=== PATIENT | female | born 1965 | race Caucasian/White ===

== ENCOUNTER 2016-09-03 08:52 | Inpatient (IN) | payer OTHER ==
[~2016-09-03] VITALS: Ht 167.6 cm; Wt 83.0 kg
[~2016-09-03 08:52] MED LIST: ALBU1AER9 INH; ALPR-411 PO; ATOR-22 PO; CZR50 PO; LEVO75TA5 PO; PRLSR20 PO
[2016-09-03 09:19] LABS: BASO % 0.3 %; BASO ABS # 0.02 K/uL (0-0.2); COMPLETE YES; EOS % 2.9 %; HEMATOCRIT 49.2 % (37-47); IG% 0.2 %; LYMPH % 24.8 %; MEAN CELL VOLUME 95.7 fL (80-100); MEAN CORPUSCULAR HEMOGLOBIN 32.7 pg (25-34); MEAN CORPUSCULAR HGB CONC 34.1 g/dl (32-36); MEAN PLATELET VOLUME 10.5 fL (7.4-10.4); MONO % 7.1 %; NEUT % 64.7 %; PLATELET COUNT 141 K/uL (130-400); RED BLOOD COUNT 5.14 M/uL (4.2-5.4); WHITE BLOOD COUNT 6.45 K/uL (4.8-10.8)
[2016-09-03 09:26] LABS: BUN/CREATININE RATIO 15.6 (10-20); CREATININE 0.81 mg/dl (0.60-1.20); MAGNESIUM 1.8 mg/dl (1.8-2.4)
[2016-09-03 09:29] LABS: CALCIUM 8.7 mg/dl (8.5-10.1)
[2016-09-03 09:30] LABS: PROTHROMBIN TIME (PATIENT) 10.3 SECONDS (9.0-12.0)
[2016-09-03 09:37] LABS: CKMB/CK RATIO 2.1 (0-3.0); THYROID STIMULATING HORMONE 5.59 uIu/ml (0.300-4.500)
--- NOTE | 2016-09-03 09:52 | DIAGNOSTIC IMAGING REPORT ---
CHEST ONE VIEW PORTABLE HISTORY: dyspnea and pain in RUQ COMPARISON: Chest 01/30/2016. FINDINGS: No pneumothorax. No pleural effusions. Left basilar linear densities favor subsegmental atelectasis or scarring. The heart is mildly enlarged, unchanged. Mild emphysema. Bibasilar interstitial thickening is likely due to vascular crowding. This is also unchanged. No new focal lung consolidations. IMPRESSION: No significant change compared to the prior study. No acute process. Stable mild cardiomegaly and emphysema. Electronically signed by: Santo Silverio M.D. 09/03/2016 9:51 AM Dictated Date/Time: 09/03/2016 9:49 AM
[2016-09-03] MEDS ORDERED: ALBUT/IPRATROP 3MG/0.5MG NEB 3 ML VIAL INH STA (09:58)
[2016-09-03] MEDS ORDERED: METHYLPREDNISOLONE 125 MG VIAL IV STA (09:58)
[2016-09-03] MEDS ORDERED: VNTHFA/IN INH (10:39)
--- NOTE | 2016-09-03 12:17 | DIAGNOSTIC IMAGING REPORT ---
BILATERAL LOWER EXTREMITY VENOUS DOPPLER HISTORY: Shortness of breath COMPARISON STUDY: None. FINDINGS: There is normal compressibility, flow, and augmentation within the bilateral lower extremity deep venous systems. IMPRESSION: No DVT within the right or left lower extremity. Electronically signed by: Santo Silverio M.D. 09/03/2016 12:16 PM Dictated Date/Time: 09/03/2016 12:16 PM
--- NOTE | 2016-09-03 12:20 | DIAGNOSTIC IMAGING REPORT ---
Right upper quadrant ultrasound GALLBLADDER-ABD LIMITED CLINICAL HISTORY: RUQ abdominal pain pain. Nausea. TECHNIQUE: Ultrasound COMPARISON STUDY: None FINDINGS: Gallbladder is normal. Common bile duct 5 mm. Fatty infiltration of liver. Pancreas and right kidney are unremarkable. IMPRESSION: Fatty infiltration of liver. Otherwise negative study. Electronically signed by: Reddy Girard M.D. 09/03/2016 12:19 PM Dictated Date/Time: 09/03/2016 12:17 PM
[2016-09-03 12:53] LABS: MANUAL MICROSCOPIC REQUIRED? NO; REVIEW REQ? NO; URINE APPEARANCE CLEAR (CLEAR); URINE BILIRUBIN NEG (NEG); URINE COLOR YELLOW; URINE NITRITE NEG (NEG); URINE PH 5.5 (4.5-7.5); URINE SPECIFIC GRAVITY 1.023 (1.000-1.030); UROBILINOGEN NEG (NEG); ZZUR CULT IF INDIC CLEAN CATCH NO
[2016-09-03 13:56] VITALS: O2SAT 90; Ht 167.6 cm; Wt 83.0 kg
[2016-09-03] MEDS ORDERED: ALUMINUM/MAGNESIUM/SIMETH (MAALOX MAX) 30 ML UDC PO PRN (15:15)
[2016-09-03] MEDS ORDERED: POLYETHYLENE (MIRALAX) 17 GM PACK PO PRN (15:15)
[2016-09-03] MEDS ORDERED: ZOLPIDEM TARTRATE 5 MG TAB PO PRN (15:15)
[2016-09-03] MEDS ORDERED: ALBUTEROL HFA 8 GM INHALER INH PRN (15:15)
[2016-09-03] MEDS ORDERED: MAGNESIUM HYDROXIDE SUSP 30 ML UDC PO PRN (15:15)
[2016-09-03] MEDS ORDERED: ACETAMINOPHEN 325 MG TAB PO PRN (15:15)
[2016-09-03] MEDS ORDERED: NICOTINE 21 MG/24 HR TDSY ONE (15:55)
[2016-09-03] MEDS: ALPRAZOLAM 0.5 MG TAB PO PRN (15:56)
--- NOTE | 2016-09-03 16:19 | HISTORY & PHYSICAL EXAMINATION ---
DATE OF ADMISSION: 09/03/2016 CHIEF COMPLAINT: Shortness of breath. HISTORY OF PRESENT ILLNESS: The patient is a 50-year-old female with past medical history of COPD secondary to chronic smoking, presented to the ED with 3 days' history of significant shortness of breath. The patient denies any cough more than usual. Denies any chest pain or palpitation. She is supposed to be on 2.5 liters of oxygen at night at bedtime at home, but she stated that she noticed that she is requiring her oxygen all the time. When she came to the ED, she was found to have an oxygen saturation of 77% on room air and her blood pressure was 200/100. Chest x-ray showed no significant change compared to old x-rays that we have illustrating her emphysema. The patient then changed her mind and wanted to leave against medical advice when I was called for the admission. Upon my arrival, I talked to her about having some more workup done. She agreed. REVIEW OF SYSTEMS: Denies any headache, double vision, blurry vision. Denies any chest pain or palpitation. Admits to regular chronic cough but nothing is changed. Denies any diarrhea, blood in stool. Denies any burning sensation in the urine or blood. Denies any focal weakness, tingling, numbness. Rest of the review of systems is negative. PAST MEDICAL HISTORY: Lyme disease, dyslipidemia, hypertension, COPD. FAMILY HISTORY: Denies any family history for diabetes or heart disease. SOCIAL HISTORY: She is currently smoker and drinks socially. She cut down on smoking 10 cigarettes a day. LABORATORY DATA: Sodium 143, potassium 4, BUN is 13, creatinine 0.8. LFTs are normal. TSH is 5.6. INR is 1. Urine is negative. White blood cell count 6.4, hemoglobin is 16.8 and platelet count is 141. PHYSICAL EXAMINATION: VITAL SIGNS: Pulse 69, respiration is 14, blood pressure 164/117, saturation 77 on room air. HEENT: No jaundice, no pallor with mucous membranes. NECK: Supple. HEART: S1, S2 normal. No gallop, rub or murmur. LUNGS: Clear to auscultation bilaterally. Normal chest wall expansion. ABDOMEN: Soft, nontender, nondistended. NEUROLOGIC: Awake, alert, oriented to time, place, and person. Moves all extremities. Sensation intact. Cranial nerves II through XII appear to be intact. HOME MEDICATIONS: Albuterol inhaler, Xanax p.r.n., Lipitor 20 mg daily, Synthroid 75 mcg p.o. daily, omeprazole 20 mg daily. ASSESSMENT: 1. Acute on chronic hypoxic respiratory failure secondary to below. 2. Chronic obstructive pulmonary disease exacerbation 3. Hypertensive urgency. 4. Dyslipidemia. 5. Clinically suspected obstructive sleep apnea. 6. Clinically suspected pulmonary hypertension. 7. Reactive polycythemia. PLAN: 1. Admit patient to telemetry. 2. Start the patient on steroids IV and Solu-Medrol 40 mg 6 hours. 3. Start patient on nebulizer, inhalers, bronchodilators. 4. Consult Dr. Oropeza because the patient will need pulmonology followup as an outpatient. 5. Consult social media marketing analyst for portable oxygen. 6. GI and DVT prophylaxis. 7. The patient was on losartan at home 50 mg daily, will increase it 50 plus 12.5 hydrochlorothiazide. 8. We will add amlodipine. 9. Continue her Lipitor. 10. Check hemoglobin A1c and lipids to stratify her risk. 11. Order 2-D echo to evaluate pulmonary hypertension and to rule out any AV shunt. The patient was instructed to decrease cigarette use and will be placed on a nicotine patch while in the hospital.
[2016-09-03 17:40] VITALS: BP 179/117; PULSE 75; TEMP 36.7; O2SAT 91
[2016-09-03] MEDS ORDERED: ENOXAPARIN 40 MG/0.4 ML SYR SC SCH (18:00)
[2016-09-03] MEDS: AMLODIPINE BESYLATE 5 MG TAB PO SCH (18:03)
[2016-09-03] MEDS: LOSARTAN/HCTZ 50-12.5 EA TAB PO SCH (18:03)
[2016-09-03] MEDS: METHYLPREDNISOLONE IV 40 MG in SYRINGE 0 ML IV SCH ×2 (18:04→21:30)
[2016-09-03 18:08] LABS: CHOLESTEROL/HDL RATIO 3.2
--- NOTE | 2016-09-03 18:36 | EMERGENCY ROOM VISIT NOTE ---
History First contact with patient: 08:56 Chief Complaint: SHORTNESS OF BREATH Stated Complaint: COPD EXACERBATION Nursing Triage Summary: "since last /saturday I've been short of breath" "I usually wear oxygen at night but I'm afraid I'm gonna in my sleep." hx of copd History of Present Illness The patient is a 50 year old female who presents to the Emergency Room via ambulance with complaints of "abdominal pain/shortness of breath". The patient states that she has a history of emphysema, and this past and Saturday she felt as though she could not breathe, and had an acute worsening of her chronic shortness of breath. She states that she has smoked a total of 6 cigarettes since Saturday. She notes this is markedly decreased as she usually smokes 10 cigarettes per day. There is associated lightheadedness. The patient states that she does wear 2.5 L of oxygen at night. She also states that she developed right upper quadrant pain that began yesterday . There is no other abdominal pain, fevers, chills, chest pain, leg swelling. Review of Systems A complete 10-point Review of Systems was discussed with the patient, with pertinent positives and negatives listed in the History of Present Illness. All remaining Review of Systems questions can be considered negative unless otherwise specified. Past Medical/Surgical History Medical Problems: (1) COPD exacerbation (2) Emphysema of lung (3) HYPERLIPIDEMIA NEC/NOS (4) HYPERTENSION NOS (5) Thyroid disease Surgical Problems: (1) H/O brain surgery (2) S/P ACL repair Family History No pertinent family history Social History Smoking Status: Current Some Day Smoker Alcohol Use: none Drug Use: none Marital Status: single Housing Status: lives alone Occupation Status: employed Current/Historical Medications Scheduled Atorvastatin (Lipitor), 20 MG PO DAILY Levothyroxine Sodium (Levothyroxine Sodium), 75 MCG PO DAILY Losartan Potassium (Losartan Potassium), 50 MG PO BID Omeprazole (Prilosec), 20 MG PO DAILY Scheduled PRN Albuterol Hfa (Ventolin Hfa), 2 PUFFS INH Q6H PRN for SOB/Wheezing Alprazolam (Xanax), 0.5 MG PO TID PRN for Anxiety Allergies Coded Allergies: Iodinated Diagnostic Agents (Verified Allergy, Unknown, THROAT SWELLING, ) Physical Exam Vital Signs Date Time Temp Pulse Resp B/P (MAP) Pulse Ox O2 Delivery O2 Flow Rate FiO2 09/03/16 13:56 90 Nasal Cannula 2.0 93 09/03/16 13:29 76 20 204/147 90 Nasal Cannula 2.0 09/03/16 13:08 87 09/03/16 12:34 90 Nasal Cannula 2.0 09/03/16 12:21 73 20 164/117 76 Room Air 09/03/16 11:30 69 14 171/110 95 Room Air 09/03/16 10:09 72 16 182/110 92 Nasal Cannula 4.0 09/03/16 09:11 93 Nasal Cannula 4.0 09/03/16 09:09 93 Nasal Cannula 4.0 09/03/16 09:04 74 09/03/16 08:58 36.5 82 20 166/125 82 Room Air 09/03/16 08:58 Nasal Cannula 4.0 93 Pain Rating (0-10): 3.0 Physical Exam VITAL SIGNS - Vital signs and nursing notes were reviewed. Afebrile, hypertensive, O2 sat of 82 on 4 L. GENERAL -50-year-old female appearing her stated age who is in no acute distress. Communicates well with provider and answers questions appropriately. SKIN - Without rashes. No petechial rashes. HEAD - NC/AT. EYES - PERRL with EOMI bilaterally. Sclera anicteric. Palpebral conjunctiva pink and moist with no injection noted. EARS - No deformities of external structures noted on gross examination bilaterally. No pain elicited with palpation of the tragus bilaterally. External auditory canals without discharge or otorrhea. Tympanic membranes pearly clifford without retraction or bulging. No fluid or purulent material visualized behind the TM. Handle of malleus, umbo, cone of light, pars tensa/ flaccid all easily visualized. NOSE - Midline and without cyanosis. No epistaxis or purulent drainage noted. Septum midline without deviation or septal hematoma noted. MOUTH/OROPHARYNX - Without perioral cyanosis. Buccal mucosa pink and moist and without leukoplakia. Tongue midline with equal elevation of palate bilaterally. No tonsillar hypertrophy, erythema, or exudates noted. Fair dentition noted. NECK - Neck with FROM. Supple to palpation. No meningismus LUNGS - Chest wall symmetric without accessory muscle use, intercostals retractions, or central cyanosis. Normal vesicular breath sounds CTA B/L. minimal bilateral wheezing noted. No rales, or rhonchi appreciated. CARDIAC - RRR with S1/S2. No murmur, rubs, or gallops appreciated. ABDOMEN - Abdominal contour without pulsations or visible masses. BS normoactive all four quadrants. There is tenderness in the right upper quadrant. No palpable masses, hepatosplenomegaly, or ascites noted. EXTREMITIES - No clubbing or peripheral cyanosis. No pretibial edema present. + 5/5 strength noted in UE/LE bilaterally. Medical Decision & Procedures ER Provider Diagnostic Interpretation: BILATERAL LOWER EXTREMITY VENOUS DOPPLER HISTORY: Shortness of breath COMPARISON STUDY: None. FINDINGS: There is normal compressibility, flow, and augmentation within the bilateral lower extremity deep venous systems. IMPRESSION: No DVT within the right or left lower extremity. Electronically signed by: Santo Silverio M.D. 09/03/2016 12:16 PM Dictated Date/Time: 09/03/2016 12:16 PM Right upper quadrant ultrasound GALLBLADDER-ABD LIMITED CLINICAL HISTORY: RUQ abdominal pain pain. Nausea. TECHNIQUE: Ultrasound COMPARISON STUDY: None FINDINGS: Gallbladder is normal. Common bile duct 5 mm. Fatty infiltration of liver. Pancreas and right kidney are unremarkable. IMPRESSION: Fatty infiltration of liver. Otherwise negative study. Electronically signed by: Reddy Girard M.D. 09/03/2016 12:19 PM Dictated Date/Time: 09/03/2016 12:17 PM CHEST ONE VIEW PORTABLE HISTORY: dyspnea and pain in RUQ COMPARISON: Chest 01/30/2016. FINDINGS: No pneumothorax. No pleural effusions. Left basilar linear densities favor subsegmental atelectasis or scarring. The heart is mildly enlarged, unchanged. Mild emphysema. Bibasilar interstitial thickening is likely due to vascular crowding. This is also unchanged. No new focal lung consolidations. IMPRESSION: No significant change compared to the prior study. No acute process. Stable mild cardiomegaly and emphysema. Electronically signed by: Santo Silverio M.D. 09/03/2016 9:51 AM Dictated Date/Time: 09/03/2016 9:49 AM Laboratory Results 09/03/16 08:25 Red Blood Count 5.14, Mean Corpuscular Volume 95.7, Mean Corpuscular Hemoglobin 32.7, Mean Corpuscular Hemoglobin Concent 34.1, Mean Platelet Volume 10.5, Neutrophils (%) (Auto) 64.7, Lymphocytes (%) (Auto) 24.8, Monocytes (%) (Auto) 7.1, Eosinophils (%) (Auto) 2.9, Basophils (%) (Auto) 0.3, Neutrophils # (Auto) 4.17, Lymphocytes # (Auto) 1.60, Monocytes # (Auto) 0.46, Eosinophils # (Auto) 0.19, Basophils # (Auto) 0.02 09/03/16 08:25 Test 09/03/16 08:25 09/03/16 12:30 White Blood Count 6.45 K/uL (4.8-10.8) Red Blood Count 5.14 M/uL (4.2-5.4) Hemoglobin 16.8 g/dL (12.0-16.0) Hematocrit 49.2 % (37-47) Mean Corpuscular Volume 95.7 fL (80-100) Mean Corpuscular Hemoglobin 32.7 pg (25-34) Mean Corpuscular Hemoglobin Concent 34.1 g/dl (32-36) Platelet Count 141 K/uL (130-400) Mean Platelet Volume 10.5 fL (7.4-10.4) Neutrophils (%) (Auto) 64.7 % Lymphocytes (%) (Auto) 24.8 % Monocytes (%) (Auto) 7.1 % Eosinophils (%) (Auto) 2.9 % Basophils (%) (Auto) 0.3 % Neutrophils # (Auto) 4.17 K/uL (1.4-6.5) Lymphocytes # (Auto) 1.60 K/uL (1.2-3.4) Monocytes # (Auto) 0.46 K/uL (0.11-0.59) Eosinophils # (Auto) 0.19 K/uL (0-0.5) Basophils # (Auto) 0.02 K/uL (0-0.2) RDW Standard Deviation 46.3 fL (36.4-46.3) RDW Coefficient of Variation 13.4 % (11.5-14.5) Immature Granulocyte % (Auto) 0.2 % Immature Granulocyte # (Auto) 0.01 K/uL (0.00-0.02) Prothrombin Time 10.3 SECONDS (9.0-12.0) Prothromb Time International Ratio 1.0 (0.9-1.1) Activated Partial Thromboplast Time 26.0 SECONDS (21.0-31.0) Partial Thromboplastin Ratio 1.0 D-Dimer 280 ug/L FEU (0-500) Anion Gap 9.0 mmol/L (3-11) Est Creatinine Clear Calc Drug Dose 88.9 ml/min Estimated GFR () 96.8 Estimated GFR (Non- 83.5 BUN/Creatinine Ratio 15.6 (10-20) Calcium Level 8.7 mg/dl (8.5-10.1) Magnesium Level 1.8 mg/dl (1.8-2.4) Total Bilirubin 0.7 mg/dl (0.2-1) Aspartate Amino Transf (AST/SGOT) 17 U/L (15-37) Alanine Aminotransferase (ALT/SGPT) 22 U/L (12-78) Alkaline Phosphatase 90 U/L (45-117) Total Creatine Kinase 29 U/L (26-192) Creatine Kinase MB 0.6 ng/ml (0.5-3.6) Creatine Kinase MB Ratio 2.1 (0-3.0) Troponin I < 0.015 ng/ml (0-0.045) Pro-B-Type Natriuretic Peptide 728 pg/ml (0-900) Total Protein 7.1 gm/dl (6.4-8.2) Albumin 3.5 gm/dl (3.4-5.0) Globulin 3.6 gm/dl (2.5-4.0) Albumin/Globulin Ratio 1.0 (0.9-2) Lipase 147 U/L (73-393) Thyroid Stimulating Hormone (TSH) 5.590 uIu/ml (0.300-4.500) Hepatitis C Antibody Screen NEG (NEG) Urine Color YELLOW Urine Appearance CLEAR (CLEAR) Urine pH 5.5 (4.5-7.5) Urine Specific [place] 1.023 (1.000-1.030) Urine Protein NEG (NEG) Urine Glucose (UA) NEG (NEG) Urine Ketones NEG (NEG) Urine Occult Blood NEG (NEG) Urine Nitrite NEG (NEG) Urine Bilirubin NEG (NEG) Urine Urobilinogen NEG (NEG) Urine Leukocyte Esterase NEG (NEG) Urine Test NEG (NEG) Medications Administered Medications (Trade) Dose Ordered Sig/Judy Route Start Time Stop Time Status Last Admin Dose Admin Methylprednisolone Sodium Succinate (Solu-Medrol IV) 125 mg NOW STAT IV 09/03/16 09:58 09/03/16 10:01 DC 09/03/16 10:09 125 MG HCTZ/Losartan Potassium (Hyzaar 50-12.5 Tab) 1 tab QAM PO 09/03/16 15:01 10/03/16 15:00 09/03/16 18:03 1 TAB Amlodipine Besylate (Norvasc Tab) 10 mg QAM PO 09/03/16 15:01 10/03/16 15:00 09/03/16 18:03 10 MG Medical Decision Patient was seen and evaluated as above. After obtaining a thorough history and physical examination IV access was initiated and the above workup was performed. Patient states she received a DuoNeb via ambulance. She presents to us today with low oxygenation saturation, acute worsening of her shortness of breath or upper quadrant abdominal pain. She is nontoxic on examination. She is actually tolerating the low O2 sat quite well. She states that she has been admitted previously for low O2 sats. CBC reveals no leukocytosis. Hemoglobin is high at 16.8. Coagulation studies unremarkable. D-dimer is normal at 280. Patient's CMP completely unremarkable other than his TSH being elevated at 5.590. Urine unremarkable. Venous Doppler obtained of the lower extremities to rule out DVT and this was negative. Gallbladder ultrasound negative. Chest x-ray stable change. EKG reveals normal sinus rhythm, nonspecific T wave abnormality, this was compared with EKG of 01/30/2016, and this appears to be improved as the T-wave inversions are no longer evident in the lateral leads. The patient was then offered a DuoNeb and declined. She was given 125 of Solu-Medrol. She is reevaluated and was still experiencing her symptoms. Her oxygen saturations was much improved by 4 L nasal cannula. At one point this had been stopped and the patient was noted to drop to 77%. This was probably placed back on the patient. I then discussed with the patient that she should likely stay here in the hospital for further evaluation and management. I informed her that although this low oxygenation may be secondary to her chronic emphysema, I do believe that this acute change could be life-threatening as now her oxygen saturations are believed to be lower. I did consult the hospitalist, and the patient declined admission. The hospitalist discussed the case with the patient and the patient then agreed to stay. I do leave this is reasonable. Please refer to further documentation regarding her stay. In evaluation treatment this patient following differential diagnoses were entertained: HI, PE, acute exacerbation of COPD/emphysema, pneumonia, among others. Impression Primary Impression: Hypoxia Additional Impressions: COPD exacerbation RUQ abdominal pain Departure Information Dispostion Admitted as an inpatient Condition [facility] Referrals Tomi Morrow PA-C (PCP) Forms HOME CARE DOCUMENTATION FORM, IMPORTANT VISIT INFORMATION Patient Instructions [facility] Problem Qualifiers
[2016-09-03 19:50] VITALS: PULSE 84; O2SAT 90
[2016-09-03] MEDS: IPRATROPIUM BROMIDE NEB SOLN 0.02% 2.5 ML VIAL INH SCH (19:50)
[2016-09-03] MEDS: LEVALBUTEROL 1.25MG/0.5ML NEB INH SCH (19:50)
[2016-09-03 20:00] VITALS: BP 176/108; PULSE 69; TEMP 36.5; O2SAT 91; O2SAT 92
[2016-09-03 21:33] VITALS: BP 158/104; PULSE 85
[2016-09-04] VITALS (10 sets, daily range): BP systolic 136–189; BP diastolic 80–107; PULSE 66–108; TEMP 36.5–36.7; O2SAT 91–93
[2016-09-04] MEDS ORDERED: HydrALAZINE HCL 20 MG/ML VIAL IV. PRN (01:30)
[2016-09-04] MEDS: METHYLPREDNISOLONE IV 40 MG in SYRINGE 0 ML IV SCH ×3 (04:20→16:00)
[2016-09-04] MEDS ORDERED: LEVOTHYROXINE 75 MCG TAB PO SCH (06:30)
[2016-09-04 06:52] LABS: COMPLETE YES; HEMATOCRIT 50.6 % (37-47); IG% 0.3 %; LYMPH ABS # 0.58 K/uL (1.2-3.4); MEAN CELL VOLUME 95.1 fL (80-100); MEAN CORPUSCULAR HGB CONC 33.6 g/dl (32-36); MEAN PLATELET VOLUME 10.6 fL (7.4-10.4); MONO % 1.2 %; NEUT % 92.5 %; PLATELET COUNT 153 K/uL (130-400); RED BLOOD COUNT 5.32 M/uL (4.2-5.4); WHITE BLOOD COUNT 9.69 K/uL (4.8-10.8)
[2016-09-04] MEDS: IPRATROPIUM BROMIDE NEB SOLN 0.02% 2.5 ML VIAL INH SCH ×3 (07:12→15:41)
[2016-09-04] MEDS: LEVALBUTEROL 1.25MG/0.5ML NEB INH SCH ×3 (07:12→15:41)
[2016-09-04 07:27] LABS: BUN/CREATININE RATIO 16.7 (10-20); CALCIUM 9.8 mg/dl (8.5-10.1); CREATININE 0.82 mg/dl (0.60-1.20); POTASSIUM 4.1 mmol/L (3.5-5.1)
[2016-09-04 07:30] LABS: ALB/GLOB RATIO 1.1 (0.9-2); PHOSPHORUS 2.8 mg/dl (2.5-4.9)
[2016-09-04] MEDS: AMLODIPINE BESYLATE 5 MG TAB PO SCH (07:47)
[2016-09-04] MEDS: LOSARTAN/HCTZ 50-12.5 EA TAB PO SCH (07:47)
[2016-09-04 09:00] LABS: ESTIMATED AVERAGE GLUCOSE 120 mg/dl; HA1C FLAG Normal (Normal)
[2016-09-04] MEDS ORDERED: ASPIRIN 81 MG ECTAB PO SCH (09:00)
[2016-09-04] MEDS ORDERED: NICOTINE 21 MG/24 HR TDSY TD SCH (09:00)
[2016-09-04] MEDS ORDERED: PANTOprazole SOD 40 MG TAB PO SCH (09:00)
[2016-09-04] MEDS ORDERED: ATORVASTATIN 20 MG TAB PO SCH (09:00)
[2016-09-04] MEDS: ALPRAZOLAM 0.5 MG TAB PO PRN (11:21)
--- NOTE | 2016-09-04 12:56 | ECHOCARDIOGRAM REPORT ---
*NOTICE TO RECEIVING REPUBLICAN AGENCY This information is strictly Confidential and protected under [place] law. [place] law prohibits you from making any further disclosure of this information unless further disclosure is expressly permitted by the written consent of the person to whom it pertains or is authorized by law. A general authorization for the release of medical or other information is not sufficient for this purpose. Hospital accepts no responsibility if the information is made available to any other person, INCLUDING THE PATIENT. Interpretation Summary * Name: IVANA GUIDO Study Date: 09/04/2016 08:57 AM BP: 152/83 mmHg * Patient Location: [facility]\S\N284\S\2 HR: 66 * : 1965 (M/d/yyyy) Gender: Female Height: 66 in * Age: 50 yrs Ethnicity: [place] Weight: 187 lb * Ordering Physician: Christiano Dukes * Referring Physician: Self, Referred * Performed By: Farzaneh Reyez RDCS * * Reason For Study: PULMONARY HTN, R/O SHUNT * BSA: 1.9 m2 * Patient Refused Bubble Study and Definity * -- Conclusions -- * There is moderate concentric left ventricular hypertrophy. * Left ventricular systolic function is normal. * Grade I diastolic dysfunction, (abnormal relaxation pattern). * Compared to a study from 2009, there has been progression of the LVH. No effusion seen on this study Procedure Details * A complete two-dimensional transthoracic echocardiogram was performed (2D, M-mode, Doppler and color flow Doppler). Left Ventricle * The left ventricle is normal in size. * There is moderate concentric left ventricular hypertrophy. * Ejection Fraction = 55-60%. * Left ventricular systolic function is normal. * Grade I diastolic dysfunction, (abnormal relaxation pattern). * The left ventricular wall motion is normal. Right Ventricle * The right ventricle is normal in size and function. Atria * Borderline left atrial enlargement. * Right atrial size is normal. * There is no Doppler evidence for an atrial septal defect. Mitral Valve * The mitral valve anatomy is normal. * There is no mitral regurgitation noted. Tricuspid Valve * The tricuspid valve is not well visualized, but is grossly normal. * Significant tricuspid regurgitation is absent. Aortic Valve * The aortic valve is normal in structure and function. * No hemodynamically significant valvular aortic stenosis. * There is no significant aortic regurgitation. Great Vessels * The aortic root is normal size. Pericardium/Pleural * There is no pericardial effusion. Great Vessels * Normal inferior vena cava diameter and respiratory variation suggests normal central venous pressure. MMode 2D Measurements and Calculations IVSd 1.6 cm IVSs 1.8 cm LVIDd 4.0 cm LVIDs 2.9 cm LVPWd 1.4 cm LVPWs 2.0 cm IVS/LVPW 1.1 FS 28.3 % EDV(Teich) 71.1 ml ESV(Teich) 31.9 ml EF(Teich) 55.2 % EDV(cubed) 65.2 ml ESV(cubed) 24.1 ml EF(cubed) 63.1 % % IVS thick 16.9 % % LVPW thick 46.7 % LV mass(C)d 227.7 grams LV mass(C)dI 117.2 grams/m\S\2 LV mass(C)s 234.7 grams LV mass(C)sI 120.7 grams/m\S\2 SV(Teich) 39.2 ml SI(Teich) 20.2 ml/m\S\2 SV(cubed) 41.2 ml SI(cubed) 21.2 ml/m\S\2 Ao root diam 3.2 cm Ao root area 8.1 cm\S\2 LA dimension 3.6 cm LA/Ao 1.1 LVAd ap4 23.3 cm\S\2 LVLd ap4 7.4 cm EDV(MOD-sp4) 64.5 ml EDV(sp4-el) 62.6 ml LVAs ap4 14.2 cm\S\2 LVLs ap4 6.2 cm ESV(MOD-sp4) 32.7 ml ESV(sp4-el) 27.7 ml EF(MOD-sp4) 49.3 % EF(sp4-el) 55.7 % LVAd ap2 27.6 cm\S\2 LVLd ap2 8.1 cm EDV(MOD-sp2) 88.1 ml EDV(sp2-el) 79.1 ml LVAs ap2 16.5 cm\S\2 LVLs ap2 6.7 cm ESV(MOD-sp2) 35.8 ml ESV(sp2-el) 34.3 ml EF(MOD-sp2) 59.3 % EF(sp2-el) 56.7 % LVLd %diff 9.3 % EDV(MOD-bp) 75.7 ml LVLs %diff 8.5 % ESV(MOD-bp) 35.2 ml EF(MOD-bp) 53.4 % SV(MOD-sp4) 31.8 ml SI(MOD-sp4) 16.4 ml/m\S\2 SV(MOD-sp2) 52.3 ml SI(MOD-sp2) 26.9 ml/m\S\2 SV(MOD-bp) 40.4 ml SI(MOD-bp) 20.8 ml/m\S\2 SV(sp4-el) 34.8 ml SI(sp4-el) 17.9 ml/m\S\2 SV(sp2-el) 44.8 ml SI(sp2-el) 23.1 ml/m\S\2 Doppler Measurements and Calculations MV E max taisha 118.1 cm/sec MV A max taisha 101.7 cm/sec MV E/A 1.2 MV dec time 0.28 sec Ao V2 max 150.8 cm/sec Ao max PG 9.1 mmHg Ao max PG (full) 3.5 mmHg LV V1 max PG 5.6 mmHg LV V1 max 118.1 cm/sec
[2016-09-04] MEDS ORDERED: LOSA100T33 PO (15:40)
[2016-09-04] MEDS ORDERED: LEVO500T19 PO (15:40)
[2016-09-04] MEDS ORDERED: ASPEC81 PO (15:40)
[2016-09-04] MEDS ORDERED: PRED10TA PO (15:40)
[2016-09-04] MEDS ORDERED: NICO21DI4 TD (15:40)
[2016-09-04] MEDS ORDERED: AMLO-114 PO (15:40)
--- NOTE | 2016-09-04 15:51 | Discharge Instructions ---
Discharge Instructions Date of Service Sep 04, 2016. Admission Reason for Admission: Copd Exacerbation Discharge Discharge Diagnosis / Problem: COPD exacerbation, acute hypoxemic respiratory failure Discharge Goals Goal(s): Improve disease control, Therapeutic intervention Activity Recommendations Activity Limitations: resume your previous activity Exercise/Sports Limitations: as tolerated Shower/Bathe: no limitations Driving or Machine Use: no limitations . Instructions / Follow-Up Instructions / Follow-Up You were admitted for an exacerbation of your COPD. Your oxygen levels were very low when you came in and you now are requiring oxygen to be worn constantly. You should wear 2 L at rest and bump it up to 4 L with walking around. You will finish a course of antibiotics for bronchitis and a taper of prednisone (steroid). Your blood pressure was also very high and you were started on two new medications for this.You will stop your home LOSARTAN and start a combination pill of LOSARTAN + HCT, and you will start Amlodipine once daily. Your heart muscle is overly thickened due to high blood pressure and this can be improved with control of the blood pressure. You should follow up with the Air Hose Coupler as scheduled for you, as well as your PCP. The most important thing you can do is quit smoking. Current Hospital Diet Patient's current hospital diet: Low Sodium Diet (2gm Na) Discharge Diet Recommended Diet: Low Sodium Diet (2gm Na) Procedures Procedures Performed: Echocardiogram Chest xray Gallbladder ultrasound Lower extremity Doppler ultrasound Pending Studies Studies pending at discharge: no Laboratory Results Hemoglobin A1c Test 09/04/16 06:30 Range/Units Estimated Average Glucose 120 mg/dl Hemoglobin A1c 5.8 H 4.5-5.6 % Lipid Panel Test 09/03/16 17:29 Range/Units Triglycerides Level 97 0-150 mg/dl Cholesterol Level 155 0-200 mg/dl HDL Cholesterol 49 mg/dl Cholesterol/HDL Ratio 3.2 LDL Cholesterol, Calculated 87 mg/dl Medical Emergencies . Who to Call and When: Medical Emergencies: If at any time you feel your situation is an emergency, please call 911 immediately. . Non-Emergent Contact Non-Emergency issues call your: Primary Care Provider Call Non-Emergent contact if: you have any medication questions you have worsening shortness of breath, cough, or fever. . . "Provider Documentation" section prepared by Soo Diaz. . VTE Core Measure Inpt VTE Proph given/why not?: Enoxaparin (Lovenox)SQ
--- NOTE | 2016-09-04 17:57 | Pulmonary Consultation ---
History General Date of Service: Sep 04, 2016. Stated Complaint: Copd Exacerbation HPI The patient is a 50 year old female who presents to [facility] with complaints of Copd Exacerbation. The patient's primary care provider is Tomi Morrow PA-C. Per patient, she has been feeling sick for the past 4 days, yesterday AM calling an ambulance. She was having severe shortness of breath, worsening cough. Initially hypoxic, improved rapidly over a day, I saw her this AM after her echo , she was speaking in full sentences, comfortable. Denies fever or chills She is still an active smoker, her daughter also smokes in the house. Sheused to see Dr Vásquez, but has not seen pulmonary after he left Review of Systems Per HPI All Other Symptoms All Other Systems: Reviewed and Negative Past Medical History Past Medical History: COPD, hypertension, other (Lyme disease) Family History No pertinent family history Social History Hx Tobacco Use In Past Year?: Yes Smoking Status: Current Every Day Smoker Marital status: single Occupational Status: employed Immunizations History of Influenza Vaccine: No History of Tetanus Vaccine?: Yes History of Pneumococcal: No History of Hepatitis B Vaccine: No History of MDRO History of MDRO: No Allergies Coded Allergies: Iodinated Diagnostic Agents (Verified Allergy, Unknown, THROAT SWELLING, ) Current Medications Reported Home Medications Medications Dose Route/Sig Max Daily Dose Days Date Category Dose Instructions Levaquin (Levofloxacin) 500 Mg Tab 1 Tab PO DAILY 7 09/04/16 Rx Prednisone 10 Mg Tab 60 Mg PO DAILY 09/04/16 Rx x 2 days then decrease by 10mg daily until finished Aspirin EC Low Dose (Aspirin) 81 Mg Ectab 81 Mg PO QAM 30 09/04/16 Rx OTC Losartan Potassium/Hydroc (Losartan Potassium & Hydrochlo) 1 Tab Tab 1 Tab PO DAILY 30 09/04/16 Rx 50/12.5mg tab Norvasc (Amlodipine Besylate) 10 Mg Tab 10 Mg PO DAILY 30 09/04/16 Rx Nicoderm Cq (Nicotine) 21 Mg/24 Hr Dis 1 Patch TD QAM 14 09/04/16 Rx OTC Ventolin Hfa (Albuterol) 200 Puffs/91006 Mcg Aers 2 Puffs INH Q6H PRN 09/03/16 Reported Levothyroxine Sodium 75 Mcg Tab 75 Mcg PO DAILY 09/09/14 Reported Prilosec (Omeprazole) 20 Mg Capcr 20 Mg PO DAILY 07/15/12 Reported Lipitor (Atorvastatin Calcium) 20 Mg Tab 20 Mg PO DAILY 07/15/12 Reported Xanax (Alprazolam) 0.5 Mg Tab 0.5 Mg PO TID PRN 07/15/12 Reported Physical Physical Exam Vital Signs: Date Time Temp Pulse Resp B/P (MAP) Pulse Ox O2 Delivery O2 Flow Rate FiO2 09/04/16 16:22 36.5 80 17 92 Nasal Cannula 09/04/16 15:09 36.5 80 17 136/80 (98) 92 Nasal Cannula 2.0 09/04/16 12:53 146/80 (102) 09/04/16 12:25 Nasal Cannula 2.0 09/04/16 11:30 108 20 93 Nasal Cannula 2.5 09/04/16 11:13 36.6 96 18 173/91 (118) 92 Nasal Cannula 3.0 09/04/16 08:00 Nasal Cannula 3.0 09/04/16 07:21 36.7 66 17 152/83 (106) 91 Nasal Cannula 3.0 09/04/16 07:12 87 16 93 Nasal Cannula 3.0 09/04/16 05:57 102 167/98 (121) 09/04/16 04:07 36.5 66 20 189/107 (134) 92 Nasal Cannula 3.0 09/04/16 04:00 Nasal Cannula 3.0 09/04/16 00:16 36.7 88 20 175/105 (128) 92 Nasal Cannula 3.0 09/04/16 00:00 Nasal Cannula 3.0 09/03/16 21:33 85 158/104 (122) 09/03/16 20:00 36.5 69 16 176/108 (130) 91 Nasal Cannula 3.0 09/03/16 20:00 92 Nasal Cannula 3.0 09/03/16 19:50 84 12 90 Nasal Cannula 3.0 General: Middle-aged female, NAD HEENT: NC/AT Lungs: Clear to auscultation b/l CVS: S1S2 regular Abdomen: Soft Ext: No edema Diagnostics Labs Results Past 24 Hours Test 09/04/16 06:30 Range/Units White Blood Count 9.69 4.8-10.8 K/uL Red Blood Count 5.32 4.2-5.4 M/uL Hemoglobin 17.0 12.0-16.0 g/dL Hematocrit 50.6 37-47 % Mean Corpuscular Volume 95.1 80-100 fL Mean Corpuscular Hemoglobin 32.0 25-34 pg Mean Corpuscular Hemoglobin Concent 33.6 32-36 g/dl Platelet Count 153 130-400 K/uL Mean Platelet Volume 10.6 7.4-10.4 fL Neutrophils (%) (Auto) 92.5 % Lymphocytes (%) (Auto) 6.0 % Monocytes (%) (Auto) 1.2 % Eosinophils (%) (Auto) 0.0 % Basophils (%) (Auto) 0.0 % Neutrophils # (Auto) 8.96 1.4-6.5 K/uL Lymphocytes # (Auto) 0.58 1.2-3.4 K/uL Monocytes # (Auto) 0.12 0.11-0.59 K/uL Eosinophils # (Auto) 0.00 0-0.5 K/uL Basophils # (Auto) 0.00 0-0.2 K/uL RDW Standard Deviation 46.2 36.4-46.3 fL RDW Coefficient of Variation 13.5 11.5-14.5 % Immature Granulocyte % (Auto) 0.3 % Immature Granulocyte # (Auto) 0.03 0.00-0.02 K/uL Sodium Level 139 136-145 mmol/L Potassium Level 4.1 3.5-5.1 mmol/L Chloride Level 99 98-107 mmol/L Carbon Dioxide Level 32 21-32 mmol/L Anion Gap 8.0 3-11 mmol/L Blood Urea Nitrogen 14 7-18 mg/dl Creatinine 0.82 0.60-1.20 mg/dl Est Creatinine Clear Calc Drug Dose 87.1 ml/min Estimated GFR () 95.4 Estimated GFR (Non- 82.3 BUN/Creatinine Ratio 16.7 10-20 Random Glucose 172 70-99 mg/dl Estimated Average Glucose 120 mg/dl Hemoglobin A1c 5.8 4.5-5.6 % Calcium Level 9.8 8.5-10.1 mg/dl Phosphorus Level 2.8 2.5-4.9 mg/dl Magnesium Level 2.0 1.8-2.4 mg/dl Total Bilirubin 0.7 0.2-1 mg/dl Aspartate Amino Transf (AST/SGOT) 14 15-37 U/L Alanine Aminotransferase (ALT/SGPT) 24 12-78 U/L Alkaline Phosphatase 101 45-117 U/L Total Protein 7.8 6.4-8.2 gm/dl Albumin 4.1 3.4-5.0 gm/dl Globulin 3.7 2.5-4.0 gm/dl Albumin/Globulin Ratio 1.1 0.9-2 Diagnostic Radiology Echo today: * There is moderate concentric left ventricular hypertrophy. * Left ventricular systolic function is normal. * Grade I diastolic dysfunction, (abnormal relaxation pattern). * Compared to a study from 2010, there has been progression of the LVH. No effusion seen on this study Impression Assessment and Plan 50 year old female, active smoker, with emphysema, on home O2, HTN, presents with acute exacerbation, in hypoxic respiratory failure. On steroids, solumedrol Continue bronchodilators Counseled for smoking cessation Asked her to follow up with pulmonary From a pulmonary perspective, she may be discharged home Note Total Time (mins): 30
--- NOTE | 2016-09-23 15:12 | Discharge Summary ---
Discharge Summary Date of Service Sep 04, 2016. Discharge Summary Admission Date: Sep 03, 2016 at 15:09 Discharge Date: Sep 04, 2016 Discharge Disposition: Home Principal Diagnosis: COPD exacerbation Problems/Secondary Diagnoses: Acute hypoxemic respiratory failure Current smoker HTN Hypertensive urgency Obesity Anxiety disorder Chronic diastolic CHF Moderate LVH Immunizations: Have You Had Influenza Vaccine: No History of Tetanus Vaccine?: Yes History of Pneumococcal: No History of Hepatitis B Vaccine: No Procedures: ECHO Chest xray Bilateral LE Doppler RUQ US Consultations: Pulmonology Medication Reconciliation New Medications: Amlodipine (Norvasc) 10 Mg Tab 10 MG PO DAILY for 30 Days, #30 TAB Levofloxacin (Levaquin) 500 Mg Tab 1 TAB PO DAILY for 7 Days, #7 TAB Losartan Potassium & Hydrochlo (Losartan Potassium/Hydroc) 1 Tab Tab 1 TAB PO DAILY for 30 Days, #30 TAB 0 Refills 50/12.5mg tab Prednisone (Prednisone) 10 Mg Tab 60 MG PO DAILY, #27 TAB x 2 days then decrease by 10mg daily until finished Aspirin (Aspirin EC Low Dose) 81 Mg Ectab 81 MG PO QAM for 30 Days OTC Nicotine (Nicoderm Cq) 21 Mg/24 Hr Dis 1 PATCH TD QAM for 14 Days OTC Continued Medications: Albuterol Hfa (Ventolin Hfa) 200 Puffs/93650 Mcg Aers 2 PUFFS INH Q6H PRN for SOB/Wheezing Alprazolam (Xanax) 0.5 Mg Tab 0.5 MG PO TID PRN for Anxiety, TAB Atorvastatin (Lipitor) 20 Mg Tab 20 MG PO DAILY, TAB Levothyroxine Sodium (Levothyroxine Sodium) 75 Mcg Tab 75 MCG PO DAILY Omeprazole (Prilosec) 20 Mg Capcr 20 MG PO DAILY, CAP Discontinued Medications: Losartan Potassium (Losartan Potassium) 50 Mg Tab 50 MG PO BID, #60 Discharge Exam Feeling much better on oxygen. Has no chest pain. SOB much improved. No other concerns. Is very anxious for discharge. Review of Systems: Constitutional: No fever Eyes: No problem reported ENT: No problem reported Respiratory: No shortness of breath Cardiovascular: No chest pain Abdomen: No pain, No nausea Musculoskeletal: No problem reported Genitourinary - Female: No problem reported Psychiatric: + anxiety Endocrine: No problem reported Integumentary: No problem reported Physical Exam: General Appearance: WD/WN, no apparent distress (but anxious) Eyes: normal inspection, sclerae normal ENT: hearing grossly normal Neck: trachea midline Respiratory/Chest: lungs clear, normal breath sounds, no respiratory distress, no accessory muscle use Cardiovascular: regular rate, rhythm, no edema, no gallop, no murmur, normal peripheral pulses Abdomen / GI: normal bowel sounds, non tender, soft, no organomegaly, no pulsatile mass Extremities: normal inspection, no calf tenderness, no pedal edema Neurologic/Psychiatric: alert, oriented x 3 Skin: normal color, warm/dry, no rash Hospital Course The patient is a 50-year-old female with past medical history of COPD secondary to chronic smoking, presented to the ED with 3 days' history of significant shortness of breath. The patient denies any cough more than usual. Denies any chest pain or palpitation. She is supposed to be on 2.5 liters of oxygen at night at bedtime at home, but she stated that she noticed that she is requiring her oxygen all the time. When she came to the ED, she was found to have an oxygen saturation of 77% on room air and her blood pressure was 200/100. Chest x-ray showed no significant change compared to old x-rays that we have illustrating her emphysema. The patient then changed her mind and wanted to leave against medical advice when hospitalist was called for the admission. She then agreed to stay overnight after discussion with admitting physician. ASSESSMENT: 1. Acute on chronic hypoxic respiratory failure secondary to below. 2. Chronic obstructive pulmonary disease exacerbation 3. Hypertensive urgency. 4. Dyslipidemia. 5. Clinically suspected obstructive sleep apnea. 6. Clinically suspected pulmonary hypertension. 7. Reactive polycythemia. Acute on chronic hypoxemic respiratory failure, COPD with acute exacerbation Admit patient to telemetry-had no significant events overnight Started the patient on steroids IV and Solu-Medrol 40 mg 6 hours-will finish out course of po prednisone on discharge Started patient on nebulizer, inhalers, bronchodilators. Consult Pulmonology placed because the patient will need pulmonology followup as an outpatient-appreciated recommendations Consult social professionals for portable oxygen-given at discharge 2-D echo to evaluate pulmonary hypertension and to rule out any AV shunt--> showed hypertensive heart disease, Mod LVH, Chronic diastolic dysfunction/CHF, pt declined bubble study to assess for shunt. -no evidence of pulm HTN noted on ECHO - The patient was instructed to quit cigarette use and was placed on a nicotine patch while in the hospital. HTN,Hypertensive Urgency- uncontrolled on admission- The patient was on losartan at home 50 mg daily, -added 12.5 hydrochlorothiazide and amlodipine, BPs improved Hyperlipidemia -Continue her Lipitor. Dispo-to home and with close f/u with PCP advised Total Time Spent: Greater than 30 minutes This includes examination of the patient, discharge planning, medication reconciliation, and communication with other providers. Discharge Instructions Please refer to the electronic Patient Visit Report (Discharge Instructions) for additional information. Follow-Up With PCP within 1 week Pulmonology referral as outpatient Additional Copies To Tomi Mrorow PA-C
[2017-01-18] MEDS ORDERED: SYMIN160 INH (14:08)
[2017-01-18] MEDS ORDERED: CZR50 PO (14:08)
[2017-01-18] MEDS ORDERED: SPRIN/30 INH (14:08)
[2017-01-18] MEDS ORDERED: LEVO50TA6 PO (14:08)
== END 2016-09-04 16:35 | disposition home or self-care (01) | DRG 189 ==
LOC: EDBD 08:52 → C.EDB 08:53 → C.MED 15:09 → ENRESERV 15:48
PROVIDERS: ADMIT Internal Medicine; ATTEND Family Medicine
DX: J96.21 Acute and chronic respiratory failure with hypoxia (principal); J44.1 Chronic obstructive pulmonary disease with (acute) exacerbation; A69.20 Lyme disease, unspecified; J44.9 Chronic obstructive pulmonary disease, unspecified; F17.200 Nicotine dependence, unspecified, uncomplicated; Z99.81 Dependence on supplemental oxygen; E78.5 Hyperlipidemia, unspecified; I10 Essential (primary) hypertension; I16.0 Hypertensive urgency; D75.1 Secondary polycythemia; R10.11 Right upper quadrant pain